=== PATIENT | male | born 1995 | race American Indian/Alaskan Native ===

== ENCOUNTER 2017-06-17 18:33 | Emergency (ER) | payer SELFPAY ==
[2017-06-17 19:02] VITALS: BP 98/61
[2017-06-17 19:21] LABS: Basophils % (Auto) 0.3 % (0.0-1.8); Eosinophils % (Auto) 0.1 % (0.0-4.3); Hematocrit 39.9 % (35.5-45.6); Hemoglobin 13.6 gm/dl (11.8-15.2); Mean Corpuscular HGB Conc 34 % (32-34); Mean Corpuscular Hemoglobin 30 pg (28-32); Mean Corpuscular Volume 89 fl (84-94); Platelet Count 235 K/mm3 (140-440); Red Blood Count 4.47 M/mm3 (3.65-5.03); Red Cell Distribution Width 14.3 % (13.2-15.2); White Blood Count 7.1 K/mm3 (4.5-11.0)
[2017-06-17 19:55] LABS: Anion Gap 16 mmol/L; Blood Urea Nitrogen 12 mg/dL (9-20); Calcium 9.1 mg/dL (8.4-10.2); Carbon Dioxide 28 mmol/L (22-30); Chloride 94.5 mmol/L (98-107); Glucose 119 mg/dL (75-100); Potassium 4.9 mmol/L (3.6-5.0); Sodium 134 mmol/L (137-145)
[2017-06-17 20:51] LABS: Bilirubin,Urine NEG (Negative); Blood,Urine MOD (Negative); Ketones,Urine NEG (Negative); Leukocyte Esterase,Urine NEG (Negative); Mucus,Urine 1+ /HPF; Nitrite,Urine NEG (Negative)
--- NOTE | 2017-06-17 20:53 | Ultrasound Report ---
FINAL REPORT EXAM: US TESTICULAR DOPPLER COMP HISTORY: pain left testicular pain TECHNIQUE: Multiple grayscale sonographic images were obtained of the scrotum and its contents. PRIORS: None. FINDINGS: Right and left testicle measure approximately 4.2 x 1.8 x 2.9 centimeters and 5 x 2.4 x 3.2 centimeters, respectively. Blood flow was detected in the testicles, bilaterally. No discrete mass is identified in the testicles. Prominent vessels are seen adjacent to the left testicle. IMPRESSION: 1. There is not evidence of torsion at this time. 2. Prominent vessels are seen adjacent to the left testicle which may indicate varicocele.
--- NOTE | 2017-06-17 21:00 | Emergency Department Report ---
HPI - General Chief Complaint: Pain General Time Seen by Provider: 06/17/17 20:59 - HPI HPI: Patient here reported that he is having abdominal pain this radiated that his scrotum area for 2 days. Patient stated that he fainted in bus 06/16/2017 to Triage nurse but when he came back he told me that he felt dizzy but he did not faint. Patient said the pain is radiating to his stomach and his scrotal area. Patient has a history of HIV and he goes to [facility]. Patient is on stribuild. He said he had lab work drawn last month but he cannot remember the results. Patient said his primary care doctor is at [facility] who is Dr. Ramos. Denies any nausea or vomiting. Denies any urinary burning frequency or urgency. Denies any rectal pain, rectal bleeding or diarrhea. Any fever or chills. Abdominal pain is sharp and is 8 out of 10. No peyn-lto-jyjzluw medication taken. Patient able to tolerate liquids. ED Past Medical Hx - Past Medical History Previous Medical History?: Yes Hx HIV: Yes - Surgical History Past Surgical History?: No - Family History Family history: no significant - Social History Smoking Status: Never Smoker Substance Use Type: Alcohol, Marijuana Other Social History: Single - Medications Home Medications: Home Medications Medication Instructions Recorded Confirmed Last Taken Type Ciprofloxacin HCl [Ciprofloxacin 500 mg PO Q12HR #20 tab 06/18/17 Unknown Rx TAB] metroNIDAZOLE [Flagyl] 500 mg PO Q8HR #30 tablet 06/18/17 Unknown Rx ED Review of Systems ROS: Stated complaint: ABD PAIN Other details as noted in HPI Comment: All other systems reviewed and negative Constitutional: no symptoms reported Eyes: denies: eye pain, eye discharge ENT: denies: ear pain, throat pain, congestion Respiratory: no symptoms reported Cardiovascular: denies: chest pain, palpitations, edema, syncope Gastrointestinal: abdominal pain. denies: nausea, vomiting, diarrhea, constipation, hematemesis, melena, hematochezia Genitourinary: other (scrotal pain). denies: urgency, dysuria, frequency, hematuria, discharge, testicular pain, testicular mass Musculoskeletal: denies: back pain, joint swelling, arthralgia, myalgia Skin: denies: rash Neurological: denies: headache, weakness, numbness, paresthesias, confusion, abnormal gait, vertigo Psychiatric: denies: anxiety Hematological/Lymphatic: denies: easy bleeding, easy bruising, swollen glands Physical Exam - Physical Exam Vital Signs: Vital Signs 06/17/17 18:51 Temperature 98.5 F Pulse Rate 103 H Respiratory 18 Rate Blood Pressure 98/61 O2 Sat by Pulse 96 Oximetry Vital Signs 06/17/17 06/17/17 18:51 22:00 Temperature 98.5 F 98.7 F Pulse Rate 103 H 92 H Respiratory 18 Rate Blood Pressure 98/61 O2 Sat by Pulse 96 Oximetry General: This is a 22-year-old male well-nourished well-developed in no acute distress Physical Exam: Head: Normocephalic, atraumatic. No abrasions, laceration or contusion Neck: Supple, No cervical adenopathy. Full range of motion. No C-spine tenderness. No muscular tenderness Eyes: Broderick sclera nonicteric, no conjunctival injection, bilateral pupils equal and reactive to light. Bilateral EOM intact. Ears: Bilateral TMs pearly garvin, bilaterally EAC without any redness swelling or drainage. Nose: Broderick nasal mucosa without any erythema or congestion. No drainage. Mouth: Moist, no pharyngeal exudate or erythema uvula is midline and oral airways patent. Tongue normal CV:S1, S2, tachycardic at 103 regular rhythm. No murmur Lungs: Clear to auscultate to lung enriquez. Normal work of breathing. Abdomen: Soft, normal bowel sounds in all quadrants. No rigidity or distention. No guarding or rebound tenderness. No CVA tenderness. : Normal scrotal and testicular exam. No testicular mass, erythema. No scrotal swelling or erythema. Scrotum is nontender to palpate. No rash or lesion noted to penis or pubic area. Extremity: No clubbing, cyanosis or edema. +2 pulses in all extremities. No neurovascular compromise. Capillary refill is less than 3 seconds. Back: No vertebral or paraspinal tenderness. Full range of motion and normal inspection Neurological: Alert and oriented 3, GCS of 15, normal gait, speech is clear and fluid, no facial droop. No motor or sensory deficit. Skin: Clean dry and intact, no rash or lesions. PSYCH: Normal mood and behavior ED Course Vital Signs 06/17/17 18:51 Temperature 98.5 F Pulse Rate 103 H Respiratory 18 Rate Blood Pressure 98/61 O2 Sat by Pulse 96 Oximetry Vital Signs 06/17/17 06/17/17 18:51 22:00 Temperature 98.5 F 98.7 F Pulse Rate 103 H 92 H Respiratory 18 Rate Blood Pressure 98/61 O2 Sat by Pulse 96 Oximetry - Reevaluation(s) Reevaluation #1: 06/17/17 20:03 Patient stable throughout ED course. Abdominal exam unchanged. I discussed with patient that his ultrasound of his testicles was within normal limits and that he has good blood flow to the area without any abnormalities seen. I also discussed with him that there is prominent vessels adjacent to the left testicle which may be a varicocele and this was explained. Reevaluation #2: 06/17/17 23:45 CT scan of the abdomen and pelvis without contrast was done tonight discuss results with Dr. Hall and then discuss findings with patient's it shows the patient had no renal calculi and no evidence of hydronephrosis or obstructive uropathy. Also showing the wall of the rectum appears slightly thickened and possible related to colitis and I instructed patient that I am going to start him on antibiotic to cover colitis and he will need to follow-up that is primary care and I'll refer him to GI doctor. Abdominal exam remained the same. No changes ED Medical Decision Making - Lab Data Result diagrams: 06/17/17 19:13 06/17/17 19:13 Lab Results 06/17/17 06/17/17 06/17/17 Range/Units 19:13 19:13 20:21 WBC 7.1 (4.5-11.0) K/mm3 RBC 4.47 (3.65-5.03) M/mm3 Hgb 13.6 (11.8-15.2) gm/dl Hct 39.9 (35.5-45.6) % MCV 89 (84-94) fl MCH 30 (28-32) pg MCHC 34 (32-34) % RDW 14.3 (13.2-15.2) % Plt Count 235 (140-440) K/mm3 Lymph % (Auto) 9.8 L (13.4-35.0) % [place] % (Auto) 7.2 (0.0-7.3) % Eos % (Auto) 0.1 (0.0-4.3) % Baso % (Auto) 0.3 (0.0-1.8) % Lymph # 0.7 L (1.2-5.4) K/mm3 [place] # 0.5 (0.0-0.8) K/mm3 Eos # 0.0 (0.0-0.4) K/mm3 Baso # 0.0 (0.0-0.1) K/mm3 Seg Neutrophils % 82.6 H (40.0-70.0) % Seg Neutrophils # 5.9 (1.8-7.7) K/mm3 Sodium 134 L (137-145) mmol/L Potassium 4.9 (3.6-5.0) mmol/L Chloride 94.5 L (98-107) mmol/L Carbon Dioxide 28 (22-30) mmol/L Anion Gap 16 mmol/L BUN 12 (9-20) mg/dL Creatinine 1.0 (0.8-1.5) mg/dL Estimated GFR > 60 ml/min BUN/Creatinine Ratio 12.00 % Glucose 119 H (75-100) mg/dL Calcium 9.1 (8.4-10.2) mg/dL Urine Color [place] (Yellow) Urine Turbidity Clear (Clear) Urine pH 5.0 (5.0-7.0) Ur Specific [place] 1.023 (1.003-1.030) Urine Protein 100 mg/dl (Negative) mg/dL Urine Glucose (UA) Neg (Negative) mg/dL Urine Ketones Neg (Negative) mg/dL Urine Blood Mod (Negative) Urine Nitrite Neg (Negative) Urine Bilirubin Neg (Negative) Urine Urobilinogen 4.0 (<2.0) mg/dL Ur Leukocyte Esterase Neg (Negative) Urine WBC (Auto) 9.0 H (0.0-6.0) /HPF Urine RBC (Auto) 3.0 (0.0-6.0) /HPF U Epithel Cells (Auto) 1.0 (0-13.0) /HPF Urine Mucus 1+ /HPF - EKG Data -: EKG Interpreted by Me (by attending physician) EKG shows normal: sinus rhythm Rate: normal (96 bpm) - EKG Data Interpretation: nonspecific ST-T wave fam - Radiology Data Radiology results: report reviewed CT of the abdomen without contrast revealed no renal calculi. No stones are seen along the course of the ureters. There is no evidence of hydronephrosis or other obstructive uropathy. The wall of the rectum appears slightly thickened. This may be exaggerated by nondistention. This could be related to colitis in the proper clinical setting. Ultrasound of the testicles Doppler revealed there is no evidence of torsion at this time prominent vessels are seen adjacent to the left testicle which may indicate Varocele - Medical Decision Making ED course: In here complaining of abdominal pain, scrotal pain and CT findings for no renal calculi or calculi and ureters. No obstructive uropathy. Patent wall for some possible related to colitis. Ultrasound of the testicles reveal no evidence of torsion and prominent vessels are seen adjacent to the left testicles which may indicate Varicoceles. CBC, urinalysis stable except patient with 100 protein in urine. BMP is stable sodium mildly. Chloride mildly diminished. Patient is HIV positive and he's been followed by infectious disease doctor and on medication. Laboratory and diagnostic status discussed the patient. I told them since CT suggests probable colitis and is having abdominal pain and because this is decreased immune system I will put him on ciprofloxacin and Flagyl to cover possible colitis. He understands discharge diagnosis and treatment plan and discharged home in stable condition Diagnostic/labs: CT radiology section for CT scan and ultrasound results. The lab section for laboratory results. Assess/plan: 1. Suspect colitis 2. Varicocele left testicle. 3. Abdominal pain 4. Scrotal pain Pt discharged home with prescription for Flagyl and ciprofloxacin and he was instructed to follow-up with [facility] with his primary care doctor. Critical care attestation.: If time is entered above; I have spent that time in minutes in the direct care of this critically ill patient, excluding procedure time. ED Disposition Clinical Impression: Abdominal pain in male, Left varicocele, Scrotum pain, Colitis, indeterminate Disposition: DC-01 TO HOME OR SELFCARE Is pt being admited?: No Does the pt Need Aspirin: No Condition: Stable Instructions: Varicocele (ED), Abdominal Pain (ED) Additional Instructions: Your CT scan showed that there is a probability thayou might have colitis which is infection and your in your colon. Your abdominal exam is normal and U not running a fever but he will still need to be covered with antibiotic due to immunocompromise state. Please take Flagyl and ciprofloxacin and increased her fluid intake Please follow-up with your primary care physician at [facility] in 2 days and/or return to the emergency room if you develop increasing abdominal pain. Please follow up with GI doctor as instructed. Please increase her fluid intake If you develop fever, diarrhea, rectal bleeding, nausea or vomiting please return to the emergency room [facility] Prescriptions: Ciprofloxacin HCl [Ciprofloxacin TAB] 500 mg PO Q12HR #20 tab metroNIDAZOLE [Flagyl] 500 mg PO Q8HR #30 tablet Referrals: PRIMARY CAREMD [Primary Care Provider] - 06/20/17 [facility] [Provider Group] - 06/20/17 Forms: Work/School Release Form(ED)
--- NOTE | 2017-06-17 23:33 | Cat Scan Report ---
FINAL REPORT EXAM: CT ABDOMEN PELVIS WO CON HISTORY: abdominal pain, blood in urine TECHNIQUE: Serial axial images through the abdomen and pelvis with coronal and sagittal reconstruction. PRIORS: None. FINDINGS: There is mild atelectasis in the left lung base. No pleural effusion is seen. The liver, gallbladder, pancreas, spleen and adrenal glands appear within normal limits. No renal calculi are identified. No stones are seen along the course of the ureters. There is not evidence of hydronephrosis or other obstructive uropathy. Bladder appears normal. No free fluid. The wall of the rectum appears slightly thickened. There is not evidence of bowel obstruction. No acute osseous abnormality is identified. IMPRESSION: 1. No renal calculi are identified. No stones are seen along the course of the ureters. There is not evidence of hydronephrosis or other obstructive uropathy. Source for hematuria is not identified with certainty. 2. The wall of the rectum appears slightly thickened. This may be exaggerated by nondistention. This could be related to colitis in the proper clinical setting.
== END 2017-06-18 00:30 | disposition home or self-care (01) ==
LOC: ED 18:33
DX: I86.1 Scrotal varices (principal); K52.9 Noninfective gastroenteritis and colitis, unspecified; F12.10 Cannabis abuse, uncomplicated
CPT/HCPCS: 36415; 74176; 80048; 81001; 85025; 93005; 93010; 93975; 99284